=== PATIENT | male | born 1970 ===

== ENCOUNTER 2023-09-25 16:16 | Inpatient (IN) | payer OTHER ==
[~2023-09-25] VITALS: Ht 177.8 cm; Wt 135.2 kg
[~2023-09-25 16:16] MED LIST: LIBRIUM 25M25 MG/CAP PO; Thiamine 100 MG TAB PO SCH
[2023-09-25] MEDS ORDERED: Pantoprazole 40 MG in NS 10 ML IV ONE (16:45)
[2023-09-25] MEDS ORDERED: Ondansetron 4 MG/2 ML VIAL IV ONE (16:45)
[2023-09-25] MEDS ORDERED: Folic Acid 1 MG,Thiamine 200 MG in NS 1,000 ML IV ONE (16:45)
[2023-09-25 17:06] LABS: BASO % 0.5 % (0.0-2.0); EOS # 0.1 K/mm3 (0.0-0.7); EOS % 1.1 % (0.0-4.0); GRAN # 4.9 K/mm3 (1.4-6.5); GRAN % 62.3 % (42.2-75.2); HEMATOCRIT 45.3 % (42.0-52.0); HEMOGLOBIN 16.9 g/dl (13.5-18.0); LYMPH # 2.3 K/mm3 (1.2-3.4); MEAN CELL VOLUME 87 fl (80.0-100.0); MEAN CORPUSCULAR HEMOGLOBIN 33 pg (27-31); MEAN CORPUSCULAR HGB CONC 37 g/dl (33.0-37.0); MEAN PLATELET VOLUME 9.5 fl (7.4-10.4); MONO # 0.5 K/mm3 (0.1-0.6); MONO % 6.8 % (1.7-9.3); PLATELET COUNT 373 K/mm3 (130-400); RED BLOOD COUNT 5.19 M/mm3 (4.20-5.60); REDCELL DISTRIBUTION WIDTH-CV 13.2 % (11.5-14.5)
[2023-09-25 17:23] LABS: ALBUMIN 4.3 gm/dL (3.5-5.0); BILIRUBIN,TOTAL 0.5 mg/dL (0.2-1.2); CALCIUM 9.1 mg/dL (8.4-10.2); CREATININE, serum 0.89 mg/dL (0.72-1.25); POTASSIUM 3.8 mmol/L (3.5-4.5); TOTAL PROTEIN 8.2 gm/dL (6.2-8.1)
[2023-09-25] MEDS ORDERED: LORazepam 2 MG/ML 1 ML VIAL IV ONE (17:30)
[2023-09-25 19:51] LABS: TRICYCLIC ANTIDEPRESS URINE NEGATIVE (NEGATIVE)
[2023-09-25] MEDS ORDERED: DESYREL 100MG100 MG PO (19:58)
[2023-09-25] MEDS ORDERED: CYMBALTA 20MG20 MG PO (20:00)
[2023-09-25] MEDS ORDERED: Magnesium Sulfate 4% 50 ML IV ONE (20:00)
[2023-09-25] MEDS ORDERED: LORazepam 2 MG/ML 1 ML VIAL IV PRN (20:00)
[2023-09-25] MEDS ORDERED: Acetaminophen 325 MG TAB PO PRN (20:00)
[2023-09-25] MEDS ORDERED: chlordiazePOXIDE 25 MG CAP PO PRN (20:00)
[2023-09-25] MEDS ORDERED: hydrALAZINE 20 MG/ML 1 ML VIAL IV PRN (20:00)
[2023-09-25] MEDS ORDERED: Ondansetron 4 MG/2 ML VIAL IV PRN (20:00)
[2023-09-25] MEDS ORDERED: Albuterol/Ipratropium 3 MG-0.5 MG/3 ML Neb Soln IH PRN (20:00)
[2023-09-25] MEDS ORDERED: VITAMIN D362.5 MC1 PO (20:01)
[2023-09-25] MEDS ORDERED: MOBIC15 MG PO (20:01)
[2023-09-25] MEDS ORDERED: NORVASC 10MG10 MG PO (20:04)
[2023-09-25] MEDS ORDERED: HCTZ 25MG TAB25 MG PO (20:05)
[2023-09-25] MEDS ORDERED: 1/2 NS & 20 mEq KCl 1,000 ML IV SCH (20:15)
--- NOTE | 2023-09-25 20:18 | NUR ---
Report recieved from PABLO Frias.
--- NOTE | 2023-09-25 20:28 | NUR ---
Patient arrived to the unit at this time with personal belongings. Denies any pain at this time. States he is hungry, sandwich box and water provided. IV in right hand flushes easily with no complications at this time. Assessment and med rec complete. Oriented patient to room, bed, call light, bathroom, and phone. Call light and personal items in reach. Bed in low position and bed alarm on.
[2023-09-25 20:39] VITALS: BP 151/79; PULSE 122; TEMP 98.6
[2023-09-25 21:00] VITALS: BP_SYST 151
[2023-09-25] MEDS ORDERED: traZODone 100 MG TAB PO SCH (21:00)
[2023-09-25 23:00] VITALS: BP 144/79; PULSE 113; TEMP 98.4
[2023-09-26] VITALS (19 sets, daily range): BP systolic 125–184; BP diastolic 89–112; PULSE 89–124; TEMP 97.3–98.5
--- NOTE | 2023-09-26 06:00 | NUR ---
Patient had an uneventful evening. Highest CIWA score for this nurse was 6. Denies any pain or needs at this time. Call light and personal items in reach. Bed in low position and bed alarm on.
[2023-09-26 07:14] LABS: BASO # 0.1 K/mm3 (0.0-0.2); BASO % 0.8 % (0.0-2.0); EOS # 0.1 K/mm3 (0.0-0.7); EOS % 1.3 % (0.0-4.0); GRAN # 4.3 K/mm3 (1.4-6.5); GRAN % 67.4 % (42.2-75.2); HEMATOCRIT 40.6 % (42.0-52.0); HEMOGLOBIN 15.1 g/dl (13.5-18.0); LYMPH # 1.2 K/mm3 (1.2-3.4); LYMPH % 19.4 % (20.0-51.0); MEAN CELL VOLUME 88 fl (80.0-100.0); MEAN CORPUSCULAR HEMOGLOBIN 33 pg (27-31); MEAN CORPUSCULAR HGB CONC 37 g/dl (33.0-37.0); MEAN PLATELET VOLUME 9.4 fl (7.4-10.4); MONO # 0.7 K/mm3 (0.1-0.6); MONO % 10.9 % (1.7-9.3)
[2023-09-26 07:22] LABS: PLATELET COUNT 262 K/mm3 (130-400)
[2023-09-26 07:37] LABS: BILIRUBIN,TOTAL 0.9 mg/dL (0.2-1.2); CALCIUM 8.4 mg/dL (8.4-10.2); CHOLESTEROL RISK RATIO 3.2; CREATININE, serum 0.76 mg/dL (0.72-1.25); MAGNESIUM 1.7 mg/dL (1.6-2.6); POTASSIUM 3.3 mmol/L (3.5-4.5); TOTAL PROTEIN 7.3 gm/dL (6.2-8.1)
[2023-09-26 07:58] LABS: THYROID STIMULATING HORMONE 1.956 uIU/mL (0.350-4.940)
[2023-09-26] MEDS ORDERED: Multivitamin TAB PO SCH (08:00)
[2023-09-26] MEDS ORDERED: COZAAR 25MG25 MG/TAB PO (08:20)
--- NOTE | 2023-09-26 08:30 | NUR ---
Patient is sleeping with CPAP, easily arousable. Alert and oriented x 4, denies any pain or discomfort. States some nausea early in the morning. BP WNL. Assessment completed, meds given. No further needs at this time. Call light within reach.
[2023-09-26] MEDS ORDERED: Sennosides/Docusate 8.6-50 MG TAB PO SCH (09:00)
[2023-09-26] MEDS ORDERED: amLODIPine 10 MG TAB PO SCH (09:00)
[2023-09-26] MEDS ORDERED: Folic Acid 1 MG TAB PO SCH (09:00)
[2023-09-26] MEDS ORDERED: Citalopram 20 MG TAB PO SCH (09:00)
[2023-09-26] MEDS ORDERED: DULoxetine 60 MG CAP PO SCH (09:00)
--- NOTE | 2023-09-26 14:27 | NUR ---
Call from tele monitor reporting patient tachycardic, after checking room he was getting out of restroom stating feelin ok. Right now 100 HR.
--- NOTE | 2023-09-26 16:11 | NUR ---
addiction social worker met with patient to discuss discharge planning. Patient lives in [place] with his , Angela, P# [phone]. [facility] [place]. No issues affording medications. Patient did not have a DPOA-HC but wanted to establish one. SWATI assisted patient with completing DPOA-HC, SWATI and RN witnessed signature. SW made several copies, placed a copy in chart and provided original and copies to patient. Patient has a CPAP. Independent with ADLS and is able to drive or his is able to take him to appointments. Patient would like to go to an inpatient alcohol and drug facility and his and he were looking at [facility] in [place]. SW was contacted by patient's nurse that he and his would speak with them. SWATI met with patient and his . Patient's reported that Carl from [facility] is needing information from the hospital. SWATI discussed transportation to the inpatient facility and the was concerned about her missing her appointments to transport the patient. SWATI will discuss with the alcohol treatment facility. SWATI contacted Carl from [facility]. Carl requested information for their facility to review and approve. SWATI discussed be availability. Carl expressed they do not currently have a bed available but are trying to expedite patient's stay. SWATI asked about transportation. Carl said there has been times they have transported but it depends on staffing, they said they would work with the family on this. Carl did express with the bed not being available he notified the family that he may need to return home for a couple days if discharged from the hospital before a bed is available. SWATI faxed requested information to [phone]. Discharge Plan: Home
--- NOTE | 2023-09-26 18:59 | NUR ---
Patient is resting in bed, his heart rate increases when ambulating to the restroom, but came back while resting in bed, states feeling ok. Continues with hypertension and some times SBP over 180, prn provided. Report given to shift supervisor film processing Nurse.
[2023-09-27] VITALS (10 sets, daily range): BP systolic 119–157; BP diastolic 69–98; PULSE 88–115; TEMP 97.5–98.2
--- NOTE | 2023-09-27 06:04 | NUR ---
Shift assessment was completed at 1930. Pt on CIWA protocol scoring 4, had an uneventful night. BP between 113-150 during this shift. Tylenol PRN was requested during the beggining of the shift for a headache. Pt able to verbalize his needs. Belongings and call light within reach.
--- NOTE | 2023-09-27 08:00 | NUR ---
Patient sitting up on the edge of bed eating breakfast. A&Ox4. VSS. IV CDI. Denies pain and discomfort. Independent in the room. ETOH protocol in place. No further needs expressed. Call light within reach
[2023-09-27] MEDS ORDERED: NATURE'S BLEND100 M2 PO (12:12)
[2023-09-27] MEDS ORDERED: FOLIC ACID 11 MG/TA1 PO (12:12)
[2023-09-27] MEDS ORDERED: DUO-KAPS1 CAP PO (12:14)
[2023-09-27] MEDS ORDERED: LIPITOR20 MG PO (12:17)
--- NOTE | 2023-09-27 13:30 | NUR ---
Discharge paperwork reviewed with the patient. Patient verbalized an understanding to follow doctors orders. IV removed, tip intact. Gauze and coban applied. Mary Anne talked with the rehab place in [place]. No further needs expressed.
--- NOTE | 2023-09-27 13:45 | NUR ---
Patient ambulated independently to the ER entrance with and personal belongings.
--- NOTE | 2023-09-27 13:50 | NUR ---
Data: Warehouse Team Member visit offered during Warehouse Team Member rounds. Assessment: Patient declined visit, stating that he was being discharged in a couple of hours and he was on the phone with a friend discussing the upcoming discharge. Plan of Care: Patient declined.
--- NOTE | 2023-09-27 16:23 | NUR ---
Hospitalist advised patient is ready for discharge today. SWATI contacted Stuart at [facility] in [place] who confirmed patient was on their waitlist and only had two people in front of him. SWATI provided this update to patient. SWATI also faxed discharge information to [facility].
== END 2023-09-27 13:45 | disposition home or self-care (01) | DRG 897 ==
LOC: COL.ER 16:16 → MEDICAL 19:07
PROVIDERS: Physician Assistant; ADMIT Internal Medicine
DX: F10.939 Alcohol use, unspecified with withdrawal, unspecified (principal); E86.0 Dehydration; I10 Essential (primary) hypertension; G47.00 Insomnia, unspecified; F32.A Depression, unspecified; R11.0 Nausea; K59.00 Constipation, unspecified
CPT/HCPCS: C9113; J0360; J1650; J2060; J2405; J3411; J3475; J3480; J7030